=== PATIENT | female | born 1940 | race Caucasian/White ===

== ENCOUNTER → 2019-11-30 | Outpatient (CLI) | payer MEDICARE ==
[2019-11-30 11:02] LABS: HEMATOCRIT 31.7 % (36.0-47.0); HEMOGLOBIN 10.2 g/dL (12.0-15.5)
[2019-11-30 11:10] LABS: ALBUMIN 3.1 g/dL (3.4-5.0); CALCIUM 8.7 mg/dL (8.5-10.1); CREATININE 3.7 mg/dL (0.6-1.0); GFR 11.8; PHOSPHORUS 4.1 mg/dL (2.6-4.7); POTASSIUM 3.6 mmol/L (3.5-5.1)
[2019-12-01 00:06] LABS: CALCIUM PTH 8.9 mg/dL (8.7-10.3); CREATININE PTH 3.65 mg/dL (0.57-1.00); PTH INTACT 105 pg/mL (15-65)
== END ==
LOC: LAB 10:05
PROVIDERS: ATTEND Nurse Practitioner Adult Health
DX: I12.9 Hypertensive chronic kidney disease with stage 1 through stage 4 chronic kidney disease, or unspecified chronic kidney disease (principal); N18.4 Chronic kidney disease, stage 4 (severe); D63.1 Anemia in chronic kidney disease; E87.2 Acidosis; N13.30 Unspecified hydronephrosis
CPT/HCPCS: 36415; 80069; 82728; 83540; 83550; 83970; 85014; 85018

== ENCOUNTER → 2019-12-21 | Outpatient (CLI) | payer MEDICARE ==
[2019-12-21 10:32] LABS: HEMATOCRIT 31.9 % (36.0-47.0); HEMOGLOBIN 10.4 g/dL (12.0-15.5)
[2019-12-21 11:52] LABS: ALBUMIN 3.2 g/dL (3.4-5.0); CALCIUM 8.8 mg/dL (8.5-10.1); CREATININE 3.9 mg/dL (0.6-1.0); GFR 11.1; POTASSIUM 3.9 mmol/L (3.5-5.1)
[2019-12-22 02:07] LABS: CALCIUM PTH 8.9 mg/dL (8.7-10.3); CREATININE PTH 3.43 mg/dL (0.57-1.00); PTH INTACT 146 pg/mL (15-65)
== END | disposition home or self-care (01) ==
LOC: LAB 10:03
PROVIDERS: ATTEND Nurse Practitioner Adult Health
DX: I12.9 Hypertensive chronic kidney disease with stage 1 through stage 4 chronic kidney disease, or unspecified chronic kidney disease (principal); N18.4 Chronic kidney disease, stage 4 (severe); D63.1 Anemia in chronic kidney disease; N13.30 Unspecified hydronephrosis; E87.2 Acidosis
CPT/HCPCS: 36415; 80069; 82728; 83540; 83550; 83970; 85014; 85018

== ENCOUNTER → 2019-12-28 | Outpatient (CLI) | payer MEDICARE | END | disposition home or self-care (01) | LOC: LAB 14:51 | PROVIDERS: ATTEND Urology | DX: N30.21 Other chronic cystitis with hematuria (principal) | CPT/HCPCS: 87086 ==

== ENCOUNTER → 2020-02-11 | Outpatient (CLI) | payer MEDICARE | END | disposition home or self-care (01) | LOC: LAB 13:35 | PROVIDERS: ATTEND Nurse Practitioner Family | DX: N18.5 Chronic kidney disease, stage 5 (principal); Z11.59 Encounter for screening for other viral diseases | CPT/HCPCS: 36415; 86704; 86706; 86803; 87340 ==

== ENCOUNTER → 2020-02-14 | Outpatient (CLI) | payer MEDICARE ==
--- NOTE | 2020-02-14 11:42 | RAD ---
EXAM: CHEST AP ONLY INDICATION: Reason: STARTING DIALYSIS, SHORTNESS OF BREATH W EXERTION / Spl. Instructions: / History: . TECHNIQUE: Single view COMPARISON: None FINDINGS: The heart size is normal. The great vessels show aortic calcifications but otherwise appear unremarkable. There is no hilar or mediastinal mass. Lungs show bibasilar interstitial prominence without focal infiltration. There is no pleural effusion or pneumothorax. There are no significant osseous abnormalities. IMPRESSION: Bibasilar interstitial prominence, could reflect mild early pulmonary vascular congestion. Electronically signed by: Geronimo Wright MD (02/14/2020 11:39 AM) [id number]
== END | disposition home or self-care (01) ==
LOC: DXRAD 09:37
PROVIDERS: ATTEND Nurse Practitioner Family
DX: I70.0 Atherosclerosis of aorta (principal); N18.5 Chronic kidney disease, stage 5; R09.89 Other specified symptoms and signs involving the circulatory and respiratory systems
CPT/HCPCS: 71045

== ENCOUNTER → 2020-03-10 | Outpatient (CLI) | payer MEDICARE | END | disposition home or self-care (01) | LOC: LAB 13:29 | PROVIDERS: ATTEND Obstetrics & Gynecology Gynecologic Oncology | DX: C54.1 Malignant neoplasm of endometrium (principal) | CPT/HCPCS: 36415; 86304 ==

== ENCOUNTER → 2020-04-24 | Outpatient (CLI) | payer MEDICARE ==
[2020-04-24 14:38] LABS: BASO % 0 % (0-3); EOS # 0.1 x10^3/uL (0.0-0.7); EOS % 3 % (0-3); HEMOGLOBIN 11.4 g/dL (12.0-15.5); LYMPH # 0.7 x10^3/uL (1.0-4.8); LYMPH % 16 % (24-48); MEAN CORPUSCULAR HEMOGLOBIN 31 pg (25-35); MEAN CORPUSCULAR HGB CONC 32 g/dL (31-37); MEAN CORPUSCULAR VOLUME 96 fL (79-100); MONO # 0.3 x10^3/uL (0.0-1.1); MONO % 8 % (0-9); NEUT % 73 % (31-73); PLATELET COUNT 268 x10^3/uL (140-400); RED BLOOD COUNT 3.75 x10^6/uL (3.50-5.40); RED CELL DISTRIBUTION WIDTH 15.4 % (11.5-14.5); WHITE BLOOD COUNT 4.1 x10^3/uL (4.0-11.0)
[2020-04-24 14:43] LABS: CALCIUM 8.7 mg/dL (8.5-10.1); CREATININE 3.2 mg/dL (0.6-1.0); GFR 13.9; POTASSIUM 3.8 mmol/L (3.5-5.1)
== END ==
LOC: LAB 13:40
PROVIDERS: ATTEND Urology
DX: N30.21 Other chronic cystitis with hematuria (principal)
CPT/HCPCS: 36415; 80048; 85025; 87086

== ENCOUNTER → 2020-08-24 | Outpatient (CLI) | payer MEDICARE | LOC: LAB 10:33 | PROVIDERS: ATTEND Urology | DX: N30.21 Other chronic cystitis with hematuria (principal) | CPT/HCPCS: 87086 ==

== ENCOUNTER → 2020-08-28 | Outpatient (CLI) | payer MEDICARE | LOC: LAB 13:34 | PROVIDERS: ATTEND Obstetrics & Gynecology Gynecologic Oncology | DX: C54.1 Malignant neoplasm of endometrium (principal); I82.401 Acute embolism and thrombosis of unspecified deep veins of right lower extremity; N13.39 Other hydronephrosis; N18.6 End stage renal disease; Z99.2 Dependence on renal dialysis | CPT/HCPCS: 36415; 86304 ==

== ENCOUNTER → 2021-04-17 | Outpatient (CLI) | payer MEDICARE ==
[2021-04-17 11:56] LABS: HEMATOCRIT 36.8 % (36.0-47.0); HEMOGLOBIN 12.1 g/dL (12.0-15.5)
[2021-04-17 12:47] LABS: ALBUMIN 3.4 g/dL (3.4-5.0); CALCIUM 8.9 mg/dL (8.5-10.1); CREATININE 2.8 mg/dL (0.6-1.0); GFR 16.2; PHOSPHORUS 4.1 mg/dL (2.6-4.7); POTASSIUM 3.5 mmol/L (3.5-5.1)
[2021-04-18 02:14] LABS: CALCIUM PTH 8.7 mg/dL (8.7-10.3); CREATININE PTH 2.59 mg/dL (0.57-1.00); PTH INTACT 140 pg/mL (15-65)
== END ==
LOC: LAB 09:45
PROVIDERS: ATTEND Nurse Practitioner Adult Health
DX: N18.5 Chronic kidney disease, stage 5 (principal)
CPT/HCPCS: 36415; 80069; 82728; 83540; 83550; 83970; 85014; 85018

== ENCOUNTER → 2021-04-27 | Outpatient (CLI) | payer MEDICARE ==
[2021-04-27 13:14] LABS: BACTERIA,URINE MOD /HPF (0-FEW); BILIRUBIN,URINE NEG (NEG); CLARITY,URINE CLOUDY; COLOR,URINE YELLOW; GLUCOSE,URINE NEG (NEG); NITRITE,URINE POS (NEG); SQUAMOUS EPITHELIAL CELL,UR FEW /LPF; UROBILINOGEN,URINE 0.2 mg/dL (0.2 mg/dL); WBC,URINE TNTC /HPF (0-4)
== END ==
LOC: LAB 12:12
PROVIDERS: ATTEND Nurse Practitioner Adult Health
DX: I12.9 Hypertensive chronic kidney disease with stage 1 through stage 4 chronic kidney disease, or unspecified chronic kidney disease (principal); N18.5 Chronic kidney disease, stage 5; D63.1 Anemia in chronic kidney disease; E87.2 Acidosis; N13.30 Unspecified hydronephrosis
CPT/HCPCS: 81001; 87086

== ENCOUNTER → 2021-05-04 | Outpatient (CLI) | payer MEDICARE ==
[2021-05-04 11:21] LABS: ALBUMIN 3.2 g/dL (3.4-5.0); CALCIUM 8.7 mg/dL (8.5-10.1); CREATININE 2.9 mg/dL (0.6-1.0); GFR 15.5; PHOSPHORUS 3.6 mg/dL (2.6-4.7); POTASSIUM 3.5 mmol/L (3.5-5.1)
== END ==
LOC: LAB 10:33
PROVIDERS: ATTEND Nurse Practitioner Adult Health
DX: I12.0 Hypertensive chronic kidney disease with stage 5 chronic kidney disease or end stage renal disease (principal); N18.5 Chronic kidney disease, stage 5; E87.2 Acidosis; D63.1 Anemia in chronic kidney disease; N13.30 Unspecified hydronephrosis
CPT/HCPCS: 36415; 80069

== ENCOUNTER → 2021-05-14 | Outpatient (CLI) | payer MEDICARE ==
[2021-05-14 14:52] LABS: ALBUMIN 3.2 g/dL (3.4-5.0); CALCIUM 8.4 mg/dL (8.5-10.1); CREATININE 2.5 mg/dL (0.6-1.0); GFR 18.4
[2021-05-14 14:53] LABS: PHOSPHORUS 3.6 mg/dL (2.6-4.7); POTASSIUM 4.1 mmol/L (3.5-5.1)
== END ==
LOC: LAB 09:58
PROVIDERS: ATTEND Nurse Practitioner Adult Health
DX: N18.5 Chronic kidney disease, stage 5 (principal)
CPT/HCPCS: 36415; 80069

== ENCOUNTER → 2021-07-23 | Outpatient (CLI) | payer MEDICARE | LOC: LAB 10:06 | PROVIDERS: ATTEND Urology | DX: N30.21 Other chronic cystitis with hematuria (principal) | CPT/HCPCS: 87086 ==